=== PATIENT | male | born 1980 | race African-American/Black ===

== ENCOUNTER 2016-09-20 12:16 | Emergency (ER) | payer SELFPAY ==
[~2016-09-20] VITALS: Ht 180.3 cm; Wt 85.0 kg
[2016-09-20 12:20] VITALS: BP 184/88; PULSE 117; RESP 15; TEMP 98.2; O2SAT 98
[2016-09-20 13:37] LABS: AUTOMATED NEUTROPHIL # 7.7 TH/MM3 (1.8-7.7); BASOPHIL # 0.1 TH/MM3 (0-0.2); BASOPHIL % 0.5 % (0.0-2.0); EOSINOPHIL # 0.1 TH/MM3 (0-0.4); EOSINOPHIL % 0.6 % (0.0-4.0); HEMATOCRIT 43.5 % (39.0-51.0); HEMO FLAGS DIFF FINAL; LYMPH % 20.9 % (9.0-44.0); LYMPHOCYTE # 2.2 TH/MM3 (1.0-4.8); MEAN CELL VOLUME 94.4 FL (80.0-100.0); MEAN CORPUSCULAR HGB CONC 33.9 % (32.0-36.0); MONO % 5.7 % (0.0-8.0); NEUT % 72.3 % (16.0-70.0); PLATELET COUNT 199 TH/MM3 (150-450); RED CELL DISTRIBUTION WIDTH 13.1 % (11.6-17.2); WHITE BLOOD COUNT 10.7 TH/MM3 (4.0-11.0)
[2016-09-20 13:52] LABS: ALT (GPT) 34 U/L (12-78); ANION GAP 5 MEQ/L (5-15); AST (GOT) 58 U/L (15-37); BICARBONATE 28.9 MEQ/L (21.0-32.0); BLOOD UREA NITROGEN 10 MG/DL (7-18); CHLORIDE 105 MEQ/L (98-107); GLOMERULAR FILTRATION RATE 92 ML/MIN (>89); POTASSIUM 3.7 MEQ/L (3.5-5.1); SODIUM (NA) 139 MEQ/L (136-145)
[2016-09-20 13:54] LABS: ALKALINE PHOSPHATASE 63 U/L (45-117); TOTAL BILIRUBIN ADULT 1.2 MG/DL (0.2-1.0)
[2016-09-20 16:00] VITALS: BP 140/86; PULSE 93; RESP 18; TEMP 98.6; O2SAT 96
[2016-09-20 16:39] LABS: AMPHETAMINE, URINE NEG (NEG); BARBITURATES, URINE NEG (NEG); COCAINE, URINE NEG (NEG)
--- NOTE | 2016-09-20 16:39 | PD ---
HPI Chief Complaint: Psychiatric Symptoms Time Seen by Provider: 16:35 Travel History International Travel<30 days: No Contact w/Intl Traveler<30days: No Traveled to known affect area: No History of Present Illness HPI 35-year-old male that presents to the ED for evaluation of psych. Patient has a history of substance abuse and states that his been using mostly. Per family patient has been hallucinating and acting weird. Patient states feeling somewhat depressed. He has never been here in this hospital. He denies any history of depression or mental illness. He denies any medical problems. He takes no medications. Per patient he last used today. He denies any IV drug abuse. He denies any suicidal or homicidal ideation to me. No other medical problems. Allergies to medication. Symptoms are moderate. Substance abuse has been worsening over time. [facility] Social History Alcohol Use: Yes Tobacco Use: Yes Substance Use: Yes Allergies-Medications (Allergen,Severity, Reaction): Coded Allergies: No Known Allergies (Unverified , 08/19/15) Reported Meds & Prescriptions Reported Meds & Active Scripts Active No Active Prescriptions or Reported Medications Review of Systems General / Constitutional: No: Fever, Chills, Weight Gain, Weight Loss, Other Eyes: No: Diploplia, Blurred Vision, Photophobia, Drainage, Redness, Foreign Body Sensation, Pain, Tearing, Blind Spots, Visual changes, Blindness, Other HENT: No: Headaches, Vertigo, Lightheadedness, Sore Throat, Rhinitis, Rhinorrhea, Congestion, Nosebleed, Neck Stiffness, Neck Pain, Masses, Gingival Bleeding, Dental Difficulties, Ear Discharge, Earache, Other Cardiovascular: No: Chest Pain or Discomfort, Palpitations, Irregular Rhythm, Tachycardia, Diaphoresis, Syncope, Dyspnea on exertion, Varicosities, Edema, Cyanosis, Varicosities, Phlebitis, Claudication, Other Respiratory: No: Cough, Shortness of Breath, Wheezing, Sneezing, Orthopnea, Hemoptysis, Stridor, Night Sweats, Pleuritic Pain, Other Gastrointestinal: No: Nausea, Vomiting, Diarrhea, Abdominal Pain, Hematemesis, Hematochezia, Constipation, Changes in Bowel Habits, Indigestion, Dysphagia, Loss of Appetite, Other Genitourinary: No: Urgency, Frequency, Dysuria, Nocturia, Hematuria, Decreased Urinary Output, Oliguria, Hesitancy, Dribbling, Incontinence, Pelvic Pain, Flank Pain, Dyspareunia, Discharge, Dysmenorrhea, Menorrhagia, Metorrhagia, Vaginal Bleeding, Other Musculoskeletal: No: Myalgias, Arthralgias, Limited ROM, Weakness, Cramping, Edema, Pain, Atrophy, Other Skin: No Rash, No Itching, No Dryness, No Lumps, No Hives, No Change in Pigmentation, No Change in nails, No Alopecia, No Lesions, No Breast Lumps, No Breast Tenderness, No Breast Swelling, No Other Neurologic: No: Weakness, Dizziness, Syncope, Focal Abnormalities, Coordination Problem, Tremor, Ataxia, Headache, Change in Mentation, Slurred Speech, Paresthesia, Incontinence, Seizures, Sensory Disturbance, Other Psychiatric: Positive: Depression, Substance Abuse, No: Anxiety, Suicidal Ideations, Disorder of Thought, Mood Disorder, Homicidal Ideation, Other Endocrine: No: Heat Intolerance, Cold Intolerance, Polyuria, Polydipsia, Other Hematologic/Lymphatic: No: Easy Bruising, Lymph Node Enlargement, Other Physical Exam Narrative GENERAL: SKIN: Warm and dry. HEAD: Atraumatic. Normocephalic. EYES: Pupils equal and round. No scleral icterus. No injection or drainage. ENT: No nasal bleeding or discharge. Mucous membranes pink and moist. Tongue is midline. No uvula deviation. NECK: Trachea midline. No JVD. CARDIOVASCULAR: Regular rate and rhythm. RESPIRATORY: No accessory muscle use. Clear to auscultation. Breath sounds equal bilaterally. GASTROINTESTINAL: Abdomen soft, non-tender, nondistended. Hepatic and splenic margins not palpable. MUSCULOSKELETAL: Extremities without clubbing, cyanosis, or edema. No obvious deformities. Full range of motion of the upper and lower extremities bilaterally. 2+ pulses bilaterally. NEUROLOGICAL: Awake and alert. No obvious cranial nerve deficits. Motor grossly within normal limits. Five out of 5 muscle strength in the arms and legs. Normal speech. PSYCHIATRIC: Anxious mood and affect; insight and judgment normal. Data Data Last Documented VS Vital Signs Date Time Temp Pulse Resp B/P Pulse Ox O2 Delivery O2 Flow Rate FiO2 09/20/16 16:00 98.6 93 18 140/86 96 Room Air Orders Complete Blood Count With Diff (09/20/16 12:21) Comprehensive Metabolic Panel (09/20/16 12:21) Psych Screen (09/20/16 12:21) Ob/Psych Drug Screen, Urine (09/20/16 12:23) Labs Laboratory Tests Test 09/20/16 13:30 White Blood Count 10.7 TH/MM3 Red Blood Count 4.60 MIL/MM3 Hemoglobin 14.7 GM/DL Hematocrit 43.5 % Mean Corpuscular Volume 94.4 FL Mean Corpuscular Hemoglobin 32.0 PG Mean Corpuscular Hemoglobin 33.9 % Concent Red Cell Distribution Width 13.1 % Platelet Count 199 TH/MM3 Mean Platelet Volume 9.4 FL Neutrophils (%) (Auto) 72.3 % Lymphocytes (%) (Auto) 20.9 % Monocytes (%) (Auto) 5.7 % Eosinophils (%) (Auto) 0.6 % Basophils (%) (Auto) 0.5 % Neutrophils # (Auto) 7.7 TH/MM3 Lymphocytes # (Auto) 2.2 TH/MM3 Monocytes # (Auto) 0.6 TH/MM3 Eosinophils # (Auto) 0.1 TH/MM3 Basophils # (Auto) 0.1 TH/MM3 CBC Comment DIFF FINAL Differential Comment Sodium Level 139 MEQ/L Potassium Level 3.7 MEQ/L Chloride Level 105 MEQ/L Carbon Dioxide Level 28.9 MEQ/L Anion Gap 5 MEQ/L Blood Urea Nitrogen 10 MG/DL Creatinine 1.09 MG/DL Estimat Glomerular Filtration 92 ML/MIN Rate Random Glucose 154 MG/DL Calcium Level 9.5 MG/DL Total Bilirubin 1.2 MG/DL Aspartate Amino Transf 58 U/L (AST/SGOT) Alanine Aminotransferase 34 U/L (ALT/SGPT) Alkaline Phosphatase 63 U/L Total Protein 8.1 GM/DL Albumin 4.7 GM/DL [facility] Medical Decision Making Medical Screen Exam Complete: Yes Emergency Medical Condition: Yes Medical Record Reviewed: Yes Interpretation(s) CBC & BMP Diagram 09/20/16 13:30 Differential Diagnosis Depression versus suicidal ideation versus anxiety versus adjustment disorder versus mood disorder versus bipolar disorder versus schizophrenia versus paranoid disorder versus psychosis versus substance abuse versus alcohol abuse versus alcohol induced psychosis versus homicidality addition versus cutting versus personality disorder Narrative Course 35-year-old male that presents to the ED for evaluation of psych. Patient was properly examined and was found to have signs and symptoms consistent with psychiatric illness. Labs were done. Patient was medically cleared. Okay to be seen by psych. Mental health screening was discussed with the patient. Diagnosis Primary Impression: Substance abuse Scripts No Active Prescriptions or Reported Meds Eran Estrada Sep 20, 2016 16:39
[2016-09-26 18:08] LABS: BATH SALTS (MDPV) UR NEG (NEG); ECSTASY (MDMA) UR NEG (NEG); HEROIN (6-ACETYLMORPHINE) UR NEG (NEG); K2 SPICE UR NEG (NEG); OBMETHADONE UR NEG (NEG); OXYCODONE (PERCODAN) NEG (NEG); PHENCYCLIDINE URINE NEG (NEG)
== END 2016-09-20 17:36 | disposition home or self-care (01) ==
LOC: NEPJ 12:16
DX: F19.10 Other psychoactive substance abuse, uncomplicated (principal); Z72.0 Tobacco use
CPT/HCPCS: 80053; 80307; 85025; 99284; G0481

== ENCOUNTER 2017-02-04 22:01 | Emergency (ER) | payer MEDICAID ==
[~2017-02-04] VITALS: Ht 172.7 cm; Wt 82.0 kg
[2017-02-04 22:04] VITALS: BP 161/98; PULSE 75; RESP 16; TEMP 98.7; O2SAT 99
--- NOTE | 2017-02-04 22:34 | PD ---
Physical Exam Time Seen by Provider: 22:33 Narrative 36 y/o male here for evaluation of auditory hallucinations for months. Vital signs reviewed. Seen at triage desk. Awaiting bed placement. Data Data Last Documented VS Vital Signs Date Time Temp Pulse Resp B/P Pulse Ox O2 Delivery O2 Flow Rate FiO2 02/04/17 22:04 98.7 75 16 161/98 99 MDM Medical Record Reviewed: Yes Supervised Visit with GUANACO: No Scripts No Active Prescriptions or Reported Meds Bill Carbajal Feb 04, 2017 22:34
[2017-02-04 23:40] LABS: AUTOMATED NEUTROPHIL # 5.6 TH/MM3 (1.8-7.7); BASOPHIL # 0.1 TH/MM3 (0-0.2); BASOPHIL % 0.8 % (0.0-2.0); EOSINOPHIL # 0.4 TH/MM3 (0-0.4); EOSINOPHIL % 3.1 % (0.0-4.0); HEMATOCRIT 41.8 % (39.0-51.0); HEMO FLAGS DIFF FINAL; LYMPH % 41.5 % (9.0-44.0); LYMPHOCYTE # 4.8 TH/MM3 (1.0-4.8); MEAN CELL VOLUME 93.8 FL (80.0-100.0); MEAN CORPUSCULAR HEMOGLOBIN 33.2 PG (27.0-34.0); MEAN CORPUSCULAR HGB CONC 35.4 % (32.0-36.0); NEUT % 48.6 % (16.0-70.0); PLATELET COUNT 191 TH/MM3 (150-450); RED BLOOD COUNT 4.45 MIL/MM3 (4.50-5.90); RED CELL DISTRIBUTION WIDTH 12.9 % (11.6-17.2); WHITE BLOOD COUNT 11.5 TH/MM3 (4.0-11.0)
--- NOTE | 2017-02-04 23:56 | PD ---
HPI Chief Complaint: Psychiatric Symptoms Time Seen by Provider: 23:16 Travel History International Travel<30 days: No Contact w/Intl Traveler<30days: No Traveled to known affect area: No History of Present Illness HPI Patient is a 36-year-old male presents emergency department for evaluation of hearing voices for the past 4 months. Patient states she was here in October and that time his symptoms were attributed to him using Nicolle. He states that the voices tell him to hurt other people but he's very good at ignoring the voices and would never hurt another person. He is denying any suicidal homicidal ideation. Patient states the voices also tell him to use Nicolle, he states that he was weak and succumbed to the voices a few times but hasn't used any in 3 weeks. He is accompanied by his girlfriend and his mother were concerned that his symptoms may be due to schizophrenia. No one in the family is been diagnosed schizophrenic and the patient does not carry a diagnosis of. He states that he has not used any mind altering substances in 3 weeks if still having symptoms so resent to emergency department for help. He is not followed by psychiatrist is never been diagnosed with depression bipolar disorder and schizophrenia. He denies any physical complaints at this time denies any chest pain shortness breath abdominal pain nausea vomiting diarrhea headaches. 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 [facility] Social History Alcohol Use: No Tobacco Use: Yes Substance Use: Yes Allergies-Medications (Allergen,Severity, Reaction): Coded Allergies: Tomato (Verified Allergy, Intermediate, 02/04/17) Reported Meds & Prescriptions Reported Meds & Active Scripts Active No Active Prescriptions or Reported Medications Review of Systems Except as stated in HPI: all other systems reviewed are Neg Physical Exam Narrative GENERAL: Well-developed well-nourished no obvious distress. SKIN: Focused skin assessment warm/dry. HEAD: Atraumatic. Normocephalic. EYES: Pupils equal and round. No scleral icterus. No injection or drainage. ENT: No nasal bleeding or discharge. Mucous membranes pink and moist. NECK: Trachea midline. No JVD. CARDIOVASCULAR: Regular rate and rhythm. No murmur appreciated. RESPIRATORY: No accessory muscle use. Clear to auscultation. Breath sounds equal bilaterally. GASTROINTESTINAL: Abdomen soft, non-tender, nondistended. Hepatic and splenic margins not palpable. MUSCULOSKELETAL: No obvious deformities. No clubbing. No cyanosis. No edema. NEUROLOGICAL: Awake and alert. No obvious cranial nerve deficits. Motor grossly within normal limits. Normal speech. PSYCHIATRIC: Wide eyes, normal mood and elevated affect. Endorses audio hallucinations. States that sometimes the audio hallucinations tell him to hurt other people but he knows he would never act on it. Denies any suicidal ideation. Data Data Last Documented VS Vital Signs Date Time Temp Pulse Resp B/P Pulse Ox O2 Delivery O2 Flow Rate FiO2 02/04/17 22:04 98.7 75 16 161/98 99 Orders Complete Blood Count With Diff (02/04/17 23:17) Comprehensive Metabolic Panel (02/04/17 23:17) Psych Screen (02/04/17 23:17) Drug Screen, Random Urine (02/04/17 23:17) Alcohol (Ethanol) (02/04/17 23:17) Ct Brain W/O Iv Contrast(Rout) (02/05/17 ) Labs Laboratory Tests Test 02/04/17 02/04/17 23:20 23:50 White Blood Count 11.5 TH/MM3 Red Blood Count 4.45 MIL/MM3 Hemoglobin 14.8 GM/DL Hematocrit 41.8 % Mean Corpuscular Volume 93.8 FL Mean Corpuscular Hemoglobin 33.2 PG Mean Corpuscular Hemoglobin 35.4 % Concent Red Cell Distribution Width 12.9 % Platelet Count 191 TH/MM3 Mean Platelet Volume 9.8 FL Neutrophils (%) (Auto) 48.6 % Lymphocytes (%) (Auto) 41.5 % Monocytes (%) (Auto) 6.0 % Eosinophils (%) (Auto) 3.1 % Basophils (%) (Auto) 0.8 % Neutrophils # (Auto) 5.6 TH/MM3 Lymphocytes # (Auto) 4.8 TH/MM3 Monocytes # (Auto) 0.7 TH/MM3 Eosinophils # (Auto) 0.4 TH/MM3 Basophils # (Auto) 0.1 TH/MM3 CBC Comment DIFF FINAL Differential Comment Sodium Level 141 MEQ/L Potassium Level 3.8 MEQ/L Chloride Level 106 MEQ/L Carbon Dioxide Level 28.6 MEQ/L Anion Gap 6 MEQ/L Blood Urea Nitrogen 16 MG/DL Creatinine 1.27 MG/DL Estimat Glomerular Filtration 77 ML/MIN Rate Random Glucose 95 MG/DL Calcium Level 8.9 MG/DL Total Bilirubin 0.4 MG/DL Aspartate Amino Transf 17 U/L (AST/SGOT) Alanine Aminotransferase 23 U/L (ALT/SGPT) Alkaline Phosphatase 61 U/L Total Protein 7.8 GM/DL Albumin 4.3 GM/DL Ethyl Alcohol Level LESS THAN 3 MG/DL Urine Opiates Screen NEG Urine Barbiturates Screen NEG Urine Amphetamines Screen NEG Urine Benzodiazepines Screen NEG Urine Cocaine Screen NEG Urine Cannabinoids Screen POS MDM Medical Decision Making Medical Screen Exam Complete: Yes Emergency Medical Condition: Yes Differential Diagnosis Psychosis, drug-induced psychosis, schizophrenia, bipolar, electrolyte abnormality. Narrative Course Patient was roomed emergency department, he would like to see a psychiatrist and I think that currently he does not meet Shaffer act criteria will be allowed to see the psychiatrist on a voluntary basis. Patient's basic labs are unremarkable, does have positive urine for cannabinoids. CT head was ordered for completeness but I this is very low yield. Medically he is cleared for psychiatric evaluation and disposition on a voluntary basis. Diagnosis Primary Impression: Psychosis Scripts No Active Prescriptions or Reported Meds Condition: Neal Dimas MD Feb 04, 2017 23:56
[2017-02-04 23:57] LABS: ALKALINE PHOSPHATASE 61 U/L (45-117); TOTAL BILIRUBIN ADULT 0.4 MG/DL (0.2-1.0)
[2017-02-05 00:01] LABS: ALT (GPT) 23 U/L (12-78); ANION GAP 6 MEQ/L (5-15); AST (GOT) 17 U/L (15-37); BICARBONATE 28.6 MEQ/L (21.0-32.0); BLOOD UREA NITROGEN 16 MG/DL (7-18); CHLORIDE 106 MEQ/L (98-107); GLOMERULAR FILTRATION RATE 77 ML/MIN (>89); POTASSIUM 3.8 MEQ/L (3.5-5.1); SODIUM (NA) 141 MEQ/L (136-145)
[2017-02-05 00:41] LABS: AMPHETAMINE, URINE NEG (NEG); BARBITURATES, URINE NEG (NEG); COCAINE, URINE NEG (NEG)
--- NOTE | 2017-02-05 01:41 | RADRPT ---
EXAM DATE/TIME: 02/05/2017 01:21 [facility] COMPARISON: No previous studies available for comparison. INDICATIONS : Altered mental status. RADIATION DOSE: 56.35 CTDIvol (mGy) MEDICAL HISTORY : None SURGICAL HISTORY : None. ENCOUNTER: Initial ACUITY: 1 day PAIN SCALE: 0/10 LOCATION: cranial TECHNIQUE: Multiple contiguous axial images were obtained of the head. Using automated exposure control and adj ustment of the mA and/or kV according to patient size, radiation dose was kept as low as reasonably a chievable to obtain optimal diagnostic quality images. DICOM format image data is available electro nically for review and comparison. FINDINGS: CEREBRUM: The ventricles are normal for age. No evidence of midline shift, mass lesion, hemorrhage or acute in farction. No extra-axial fluid collections are seen. POSTERIOR FOSSA: The cerebellum and brainstem are intact. The 4th ventricle is midline. The cerebellopontine angle i s unremarkable. EXTRACRANIAL: The visualized portion of the orbits is intact. SKULL: The calvaria is intact. No evidence of skull fracture. CONCLUSION: Normal examination. Shahbaz Barton MD on February 05, 2017 at 1:39 Board Certified Radiologist. This report was verified electronically.
[2017-02-05 02:14] VITALS: BP 174/114; PULSE 72; RESP 18; TEMP 98.3; O2SAT 98
[2017-02-05 06:10] VITALS: BP 120/80; PULSE 53; RESP 19; O2SAT 100
[2017-02-05 11:55] VITALS: BP 126/70; PULSE 56; RESP 16; O2SAT 99
[2017-02-05] MEDS ORDERED: SERO50TA PO (13:48)
--- NOTE | 2017-02-05 13:56 | PD ---
History of Present Illness Chief Complaint: Psychiatric Symptoms Time Seen by Provider: 13:45 Travel History International Travel<30 Days: No Contact w/Intl Traveler<30days: No Known affected area: No Legal Status Legal Status: Voluntary History of Present Illness: 36-year-old male brought in by his fiance and the mother of his children. Patient is currently complaining of ringing in his ears. He has a history of using "Nicolle" but states he and his fiance stopped approximately 2 weeks ago. Patient denies any suicidal or homicidal ideation, plan or intent at this time. His cognition is intact and he is verbally eulalia for safety. This physician encourage the patient to stop using drugs and he responded that he already has stopped. This physician also referred him to [facility] for any further evaluation and treatment of his drug abuse. Lastly, as the patient feels difficulty sleeping and experiences a ringing in his ears, this physician prescribed Seroquel 50 mg at bedtime. PFSH Past Medical History Medical History: Denies Significant Hx Psychiatric History Psychiatric History Hx Psychiatric Treatment: NONE History of Inpatient Treatment: No Guns or firearms in home: No Social History Hx Alcohol Use: No Hx Tobacco Use: Yes Hx Substance Use: Yes (NICOLLE. DENIES RECENT USE) Substance Use Type: Alcohol, Marijuana Hx of Substance Use Treatment: No Allergies-Medications (Allergen,Severity, Reaction): Coded Allergies: Tomato (Verified Allergy, Intermediate, 02/04/17) Reported Meds & Prescriptions Reported Meds & Active Scripts Active No Active Prescriptions or Reported Medications Review of Systems Except as stated in HPI: all other systems reviewed are Neg Exam [place]: Person, Place, Date, Situation Mood: Calm Affect: Appropriate Speech: Clear, Logical Eye Contact: Indirect Memory Intact: Immediate, Recent, Remote Insight/Judgement Adequate MDM Medical Decision Making Medical Record Reviewed: Yes Assessment/Plan This physician spoke with the patient's nurse regarding his recent behavior and cognition. Although the patient continues to voice a problem with ringing in his ears, this physician feels this is a result of his drug use. As he does not have any suicidal or homicidal ideation, plan or intent and he does have a place to go, which is his home with his fianc, this physician feels he does not meet criteria for Shaffer act or inpatient psychiatric hospitalization. He was given a prescription for Seroquel to help him sleep and he was given a referral to [facility] if he wants further treatment for his drug abuse problem. Orders Complete Blood Count With Diff (02/04/17 23:17) Comprehensive Metabolic Panel (02/04/17 23:17) Psych Screen (02/04/17 23:17) Drug Screen, Random Urine (02/04/17 23:17) Alcohol (Ethanol) (02/04/17 23:17) Ct Brain W/O Iv Contrast(Rout) (02/05/17 ) Diet Regular Basic (02/05/17 Breakfast) Diet Regular Basic (02/05/17 Lunch) Results Vital Signs Date Time Temp Pulse Resp B/P Pulse Ox O2 Delivery O2 Flow Rate FiO2 02/05/17 11:55 56 16 126/70 99 Room Air 02/05/17 06:10 53 19 120/80 100 Room Air 02/05/17 02:14 98.3 72 18 174/114 98 Room Air 02/04/17 22:04 98.7 75 16 161/98 99 Laboratory Tests Test 02/04/17 02/04/17 23:20 23:50 White Blood Count 11.5 Red Blood Count 4.45 Hemoglobin 14.8 Hematocrit 41.8 Mean Corpuscular Volume 93.8 Mean Corpuscular Hemoglobin 33.2 Mean Corpuscular Hemoglobin 35.4 Concent Red Cell Distribution Width 12.9 Platelet Count 191 Mean Platelet Volume 9.8 Neutrophils (%) (Auto) 48.6 Lymphocytes (%) (Auto) 41.5 Monocytes (%) (Auto) 6.0 Eosinophils (%) (Auto) 3.1 Basophils (%) (Auto) 0.8 Neutrophils # (Auto) 5.6 Lymphocytes # (Auto) 4.8 Monocytes # (Auto) 0.7 Eosinophils # (Auto) 0.4 Basophils # (Auto) 0.1 CBC Comment DIFF FINAL Differential Comment Sodium Level 141 Potassium Level 3.8 Chloride Level 106 Carbon Dioxide Level 28.6 Anion Gap 6 Blood Urea Nitrogen 16 Creatinine 1.27 Estimat Glomerular Filtration 77 Rate Random Glucose 95 Calcium Level 8.9 Total Bilirubin 0.4 Aspartate Amino Transf 17 (AST/SGOT) Alanine Aminotransferase 23 (ALT/SGPT) Alkaline Phosphatase 61 Total Protein 7.8 Albumin 4.3 Ethyl Alcohol Level LESS THAN 3 Urine Opiates Screen NEG Urine Barbiturates Screen NEG Urine Amphetamines Screen NEG Urine Benzodiazepines Screen NEG Urine Cocaine Screen NEG Urine Cannabinoids Screen POS Diagnosis Primary Impression: Psychoactive substance abuse Prescriptions Quetiapine (Seroquel)50 Mg Tab50 Mg PO HS #30 TAB Ref 0 Prov:Steven Yanez MD 02/05/17 Condition: Stable Steven Yanez MD Feb 05, 2017 13:56
== END 2017-02-05 14:29 | disposition home or self-care (01) ==
LOC: NEPD 22:01 → NEPJ 02-05 14:29
DX: F29 Unspecified psychosis not due to a substance or known physiological condition (principal); F19.10 Other psychoactive substance abuse, uncomplicated
CPT/HCPCS: 70450; 80053; 80307; 85025; 99284